=== PATIENT | male | born 1960 | race American Indian/Alaskan Native ===

== ENCOUNTER 2018-07-25 19:50 | Emergency (ER) | payer OTHER ==
[2018-07-25 20:01] VITALS: BP 128/77
[2018-07-26] MEDS ORDERED: BENADRYL PO ONE (00:24)
[2018-07-26] MEDS ORDERED: TYLENOL PO ONE (00:24)
[2018-07-26] MEDS ORDERED: REGLAN PO ONE (00:24)
[2018-07-26] MEDS ORDERED: DECADRON IM ONE (00:24)
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
== END 2018-07-26 03:33 | disposition home or self-care (01) ==
LOC: ED 19:50
DX: R51 Headache (principal); F17.200 Nicotine dependence, unspecified, uncomplicated; V49.49XA Driver injured in collision with other motor vehicles in traffic accident, initial encounter; Y93.89 Activity, other specified; Y92.488 Other paved roadways as the place of occurrence of the external cause; Y99.8 Other external cause status
CPT/HCPCS: 70450; 96372; 99283; J1100

== ENCOUNTER 2019-02-15 15:18 | Emergency (ER) | payer MEDICAID, OTHER ==
[2019-02-15 15:46] VITALS: BP 137/85
--- NOTE | 2019-02-15 15:51 | Emergency Department Report ---
ED Rash HPI - HPI Chief Complaint: Skin Rash Stated Complaint: RASH ON LT ARM Time Seen by Provider: 02/15/19 15:46 Duration: 4 Days Location: Upper Extremities Suspected Cause: Plant Rash Symptoms: Yes Itching, No Facial Swelling, No Tongue/Oral Swelling, No Breathing Difficulties, No Choking Sensation, No Wheezing/Dyspnea, No Peeling, No Blistering, No Fever, No Lightheaded, No Malaise, No Myalgias Severity: mild Other History: 58 year old male presents to Ed cc itching that started 4 days ago while he was working outside on weeds. ED Review of Systems ROS: Stated complaint: RASH ON LT ARM Other details as noted in HPI Comment: All other systems reviewed and negative ED Past Medical Hx - Past Medical History Previous Medical History?: No - Surgical History Past Surgical History?: Yes Additional Surgical History: rotator cuff - Social History Smoking Status: Never Smoker Substance Use Type: None - Medications Home Medications: Home Medications Medication Instructions Recorded Confirmed Last Taken Type Acetaminophen [Tylenol Extra 1,000 mg PO QID PRN #30 tablet 07/26/18 Unknown Rx Strength] Metoclopramide [Reglan] 10 mg PO Q6H PRN #30 tablet 07/26/18 Unknown Rx diphenhydrAMINE [Benadryl CAP] 25 mg PO Q6HR PRN #30 capsule 07/26/18 Unknown Rx Ibuprofen [Motrin] 800 mg PO Q8HR #30 tablet 02/15/19 Unknown Rx Pramoxine HCl/Calamine [Calamine 1 applic TP BID #1 lotion 02/15/19 Unknown Rx Medicated Lotion] predniSONE [Deltasone] 20 mg PO QDAY #10 tab 02/15/19 Unknown Rx Rash Exam - Exam General: Vital signs noted. No distress. Alert and acting appropriately. HEENT: No Periorbital Edema, No Conjuctival Injection, No Chemosis, No Perioral Edema, No Tongue Edema, No Uvular Edema, No Compromised Airway, No Drooling Lungs: Yes Good Air Exchange (Normal Breath Sounds), No Wheezes, No Ronchi, No Stridor, No Cough, No Labored Respirations, No Retractions, No Use of Accessory Muscles, No Other Abnormal Lung Sounds Heart: Yes Regular, No Murmur Skin: Yes Urticarial Rash, Yes Maculopapular Rash, Yes Erythema, No Morbilliform rash, No Bulla(e), No Excoriations, No Weeping, No Tenderness, No Edema, No Encrustations Other: Positive: Abdomen Normal, Neurologic Normal, Musculoskeletal Normal ED Course Vital Signs 02/15/19 15:44 Temperature 97.5 F L Pulse Rate 77 Respiratory 16 Rate Blood Pressure 137/85 O2 Sat by Pulse 98 Oximetry ED Medical Decision Making - Medical Decision Making 58 y o male presents with dermatitis possibly from poison [place] no acute distress Discuss with pt to follow up with pcp VSS no acute distress Critical care attestation.: If time is entered above; I have spent that time in minutes in the direct care of this critically ill patient, excluding procedure time. ED Disposition Clinical Impression: Acute contact dermatitis Disposition: - TO HOME OR SELFCARE Is pt being admited?: No Does the pt Need Aspirin: No Condition: Stable Instructions: Contact Dermatitis (ED), Poison Marcela (ED) Additional Instructions: follow up with pcp take medication as prescribed Prescriptions: Pramoxine HCl/Calamine [Calamine Medicated Lotion] 1 applic TP BID #1 lotion predniSONE [Deltasone] 20 mg PO QDAY #10 tab Ibuprofen [Motrin] 800 mg PO Q8HR #30 tablet Referrals: [facility] [Outside] - 3-5 Days Forms: Accompanied Note, Work/School Release Form(ED) Time of Disposition: 16:06
== END 2019-02-15 16:54 | disposition home or self-care (01) ==
LOC: ED 15:18
DX: L25.9 Unspecified contact dermatitis, unspecified cause (principal); Z79.899 Other long term (current) drug therapy; Z79.1 Long term (current) use of non-steroidal anti-inflammatories (NSAID)
CPT/HCPCS: 99282